=== PATIENT | male | born 1995 | race Caucasian/White ===

== ENCOUNTER 2020-09-06 00:35 | Emergency (ER) | payer SELFPAY ==
[~2020-09-06] VITALS: Ht 177.8 cm; Wt 68.0 kg
[2020-09-06] MEDS ORDERED: LIDOCAINE 1%-EPI 1:100,000 20 ML VIAL ONE (00:42)
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
--- NOTE | 2020-09-06 00:50 | NUR ---
AT BEDSIDE FOR SUTURING
--- NOTE | 2020-09-06 01:24 | NUR ---
Patient discharged to home in stable condition. Written and verbal after care instructions given. Patient verbalizes understanding of instruction.
[2020-09-06 01:25] VITALS: BP 114/72
== END 2020-09-06 01:25 | disposition home or self-care (01) ==
LOC: ER 00:41
DX: S51.812A Laceration without foreign body of left forearm, initial encounter (principal); Z88.0 Allergy status to penicillin; Z88.1 Allergy status to other antibiotic agents; X78.0XXA Intentional self-harm by sharp glass, initial encounter; Y93.89 Activity, other specified; Y92.89 Other specified places as the place of occurrence of the external cause; Y99.8 Other external cause status
CPT/HCPCS: 12002; 99282; A6403; J3490

== ENCOUNTER 2020-09-17 19:14 | Emergency (ER) | payer BC ==
[~2020-09-17] VITALS: Ht 177.8 cm; Wt 68.0 kg
[2020-09-17 19:16] VITALS: BP 119/76
--- NOTE | 2020-09-17 19:23 | NUR ---
NGOZI FOR STITCHES REMOVAL
--- NOTE | 2020-09-17 19:32 | NUR ---
EMT AT BEDSIDE FOR WOUND CARE
--- NOTE | 2020-09-17 19:42 | NUR ---
Patient discharged to home in stable condition. Written and verbal after care instructions given. Patient verbalizes understanding of instruction.
== END 2020-09-17 19:42 | disposition home or self-care (01) ==
LOC: ER 19:18
DX: S61.512D Laceration without foreign body of left wrist, subsequent encounter (principal); Z88.0 Allergy status to penicillin; Z88.1 Allergy status to other antibiotic agents; W26.8XXD Contact with other sharp object(s), not elsewhere classified, subsequent encounter